=== PATIENT | male | born 1965 | race Caucasian/White ===

== ENCOUNTER 2020-11-11 17:28 | Emergency (ER) | payer OTHER ==
[2020-11-11 18:54] LABS: BASOPHIL 0.1 % (0-2); EOSINOPHIL 0 % (0-5); HCT 46.5 % (42.0-52.0); HGB 15.6 g/dl (13.2-18.0); LYMPHOCYTE 4.2 % (15-48); MCH 29.2 pg (25.0-31.0); MCHC 33.5 g/dL (32.0-36.0); MCV 87.1 fL (78.0-100.0); MONOCYTE 3.6 % (0-12); MPV 9.7 fL (6.0-9.5); NRBC 0; PLT 251 K/uL (150-400); RBC 5.34 M/uL (4.70-6.00); RDW 13.4 % (11.5-14.0); WBC 11.5 K/uL (4.0-10.5)
[2020-11-11 18:55] LABS: NEUTROPHIL 91.8 % (41-80)
[2020-11-11 19:13] LABS: ALBUMIN 4.4 g/dL (3.4-5.0); BILIRUBIN - TOTAL 0.5 mg/dL (0.2-1.0); BUN/CREAT RATIO (CALC) 13.4 RATIO; CREATININE 1.34 mg/dL (0.67-1.17); GLOBULIN (CALCULATION) 3.7 g/dL; TOTAL PROTEIN 8.1 g/dL (6.4-8.2)
[2020-11-11 19:33] LABS: BILIRUBIN NEGATIVE (NEGATIVE); BLOOD 1+ Ery/uL (NEGATIVE); CLARITY CLEAR (CLEAR); COLOR YELLOW (YELLOW); GLUCOSE (U) NORMAL (NORMAL); LEUKOCYTES NEGATIVE Leu/uL (NEGATIVE); NITRITE NEGATIVE (NEGATIVE); PROTEIN TRACE (LOW) mg/dL (NEGATIVE); SPECIFIC GRAVITY 1.025 (1.001-1.030)
[2020-11-11 19:44] LABS: BACTERIA TRACE; SQUAMOUS EPITHELIAL CELLS RARE
[2020-11-12] MEDS ORDERED: FLOMAX 0.4 MG0.4 MG PO (01:02)
[2020-11-12] MEDS ORDERED: OXYCODONE HCL5 M1 PO (01:05)
[2020-11-12] MEDS ORDERED: ONDANSETRON ODT4 MG PO (01:05)
== END 2020-11-12 02:20 | disposition home or self-care (01) ==
LOC: FER 17:28
PROVIDERS: Emergency Medicine
DX: N13.2 Hydronephrosis with renal and ureteral calculous obstruction (principal)
CPT/HCPCS: 36415; 80053; 81001; 82150; 83690; 85025; J1170; J2405; J7030